=== PATIENT | male | born 1970 | race Caucasian/White ===

== ENCOUNTER 2016-08-13 21:33 | Emergency (ER) | payer SELFPAY ==
[~2016-08-13] VITALS: Ht 177.8 cm; Wt 86.5 kg
[2016-08-13 21:38] VITALS: Ht 177.8 cm; Wt 86.5 kg
== END 2016-08-14 00:10 | disposition left against medical advice (07) ==
LOC: E/R 21:33
DX: Z53.21 Procedure and treatment not carried out due to patient leaving prior to being seen by health care provider (principal)

== ENCOUNTER 2016-08-24 15:13 | Emergency (ER) | payer MEDICAID ==
[~2016-08-24] VITALS: Ht 180.3 cm; Wt 83.0 kg
[2016-08-24 15:15] VITALS: Ht 180.3 cm; Wt 83.0 kg
[2016-08-24] MEDS ORDERED: morphine 4 MG/ML VIAL IV STA (16:22)
[2016-08-24] MEDS ORDERED: ONDANSETRON 4 MG INJ IV STA (16:22)
[2016-08-24] MEDS ORDERED: FAMOTIDINE 20 MG INJ IV STA (16:22)
[2016-08-24] MEDS ORDERED: SOD CHLORIDE 0.9% 1,000 ML IV STA (16:22)
[2016-08-24 17:20] LABS: ADD SCAN DIFF NO
[2016-08-24 17:27] LABS: HEMATOCRIT 45.1 % (42.0-52.0); HEMOGLOBIN 14.5 g/dl (14.0-18.0); MEAN CORPUSCULAR HEMOGLOBIN 29.2 pg (29.0-33.0); MEAN CORPUSCULAR HGB CONC 32.2 g/dl (32.0-37.0); MEAN CORPUSCULAR VOLUME 90.7 fl (82.0-101.0); MEAN PLATELET VOLUME 9.2 fl (7.4-10.4); PLATELET COUNT 241 10^3/UL (140-415); RED BLOOD COUNT 4.97 10^6/ul (4.70-6.10); RED CELL DISTRIBUTION WIDTH 13.8 % (11.5-14.5); WHITE BLOOD COUNT 9.7 10^3/ul (4.8-10.8)
[2016-08-24 17:42] LABS: ADD UMIC YES; URINE BILIRUBIN (Dip) NEGATIVE (NEGATIVE); URINE BLOOD (Dip) NEGATIVE (NEGATIVE); URINE COLOR YELLOW (YELLOW); URINE GLUCOSE (Dip) NEGATIVE (NEGATIVE); URINE KETONES (Dip) NEGATIVE (NEGATIVE); URINE LEUKOCYTE ESTERASE (Dip) NEGATIVE (NEGATIVE); URINE NITRITE (Dip) NEGATIVE (NEGATIVE); URINE TOTAL PROTEIN (Dip) 1+ (NEGATIVE); URINE UROBILINOGEN (Dip) 0.2 E.U./dL (0.1-1.0)
[2016-08-24 17:46] LABS: ALBUMIN 3.9 g/dl (3.3-4.9); INR 1.03; POTASSIUM 3.6 mmol/L (3.5-5.1); PROTIME 13.5 Sec (12.2-14.2); PT RATIO 1.1
[2016-08-24 17:47] LABS: PARTIAL THROMBOPLASTIN TIME 34.9 Sec (25.0-35.0)
[2016-08-24 17:48] LABS: BILIRUBIN,INDIRECT 1.1 mg/dl (0-1.1); BILIRUBIN,TOTAL 1.1 mg/dl (0.2-1.3); CREATININE 1.07 mg/dl (0.61-1.24)
[2016-08-24 17:49] LABS: ALBUMIN/GLOBULIN RATIO 0.92; CALCIUM 8.7 mg/dl (8.4-10.2); TOTAL PROTEIN 8.1 g/dl (6.1-8.1)
[2016-08-24 17:50] LABS: URINE RBCS 0-2 /HPF (0)
[2016-08-24] MEDS ORDERED: IOHEXOL 300MG/ML 150 ML BTL ONE (17:58)
[2016-08-24] MEDS ORDERED: SOD CHLORIDE 0.9% 100 ML ONE (17:58)
[2016-08-24 18:08] LABS: LYMPHOCYTES # 1.2 10^3/ul (0.8-2.9); MONOCYTE # 0.6 10^3/ul (0.3-0.9); NEUTROPHIL # 6.2 10^3/ul (1.6-7.5)
[2016-08-24] MEDS ORDERED: KETOROLAC 30 MG INJ IV STA (18:34)
--- NOTE | 2016-08-24 18:36 | RADRPT ---
PROCEDURE: US Abdomen (right upper quadrant). CLINICAL INDICATION: Abdominal pain TECHNIQUE: Multiple real-time longitudinal and transverse images of the right upper quadrant of th e abdomen were acquired utilizing a curved array transducer. Images were reviewed on a high-resoluti on PACS workstation. COMPARISON: CT from the same day. FINDINGS: The liver is normal in size and echogenicity without focal mass or intrahepatic biliary dilatation. The gallbladder is normal. There is no pericholecystic fluid or gallbladder wall thickening or gal lstones. No intra or extrahepatic biliary dilatation is seen. The common bile duct measures 2.25 m m in maximal dimension. The visualized portions of the pancreas are unremarkable with obscuration o f the tail of the pancreas. No free fluid is identified. The right kidney measures 9.8 cm in length. There is normal echogenicity within the right kidney. There is no perinephric fluid collection. No hydronephrosis, mass, or calculus is seen. IMPRESSION: Unremarkable right upper quadrant ultrasound. RPTAT: .Rohan Ramey MD, Date Time Electronically viewed and signed by .Rohan Ramey MD, on 08/24/2016 18:36 .A/
--- NOTE | 2016-08-24 18:45 | RADRPT ---
PROCEDURE: CT Abdomen and Pelvis with contrast. CLINICAL INDICATION: Abdominal pain. TECHNIQUE: CT scan of the abdomen and pelvis with contrast was performed on a multi-detector high- resolution CT scanner. The patient was scanned following the uncomplicated intravenous administrati on of 100 cc of Omnipaque 300. Coronal and sagittal reformatted images were obtained from the axial source images. One or more of the following dose reduction techniques were used: Automated exposur e control, adjustment of the mA and/or kV according to patient size, use of iterative reconstructio n technique. Images were reviewed on a high-resolution PACS workstation. The total exam CTDI equals 9.28 mGy and the total exam DLP equals 603.5 mGy-cm. COMPARISON: None available. FINDINGS: CT abdomen: Minimal bilateral lower lobe dependent atelectatic changes are present. Otherwise, the lung bases are clear. The heart size is normal, without pericardial thickening or effusion. The liver is normal in size and density without focal mass or intrahepatic biliary dilatation. The spleen is normal in size and homogeneous in density. The stomach is partially collapsed, but is richard ssly unremarkable. The pancreas as visualized is normal. The gallbladder is unremarkable. The jessica iary tree is unremarkable without evidence for biliary dilatation. The adrenal glands are symmetric and normal. There is a 4 mm calculus at the inferior pole of the right kidney. Otherwise, the kid neys are unremarkable. No renal calculus or obstructive uropathy or mass lesion is seen. The aorta is of normal caliber. There is no retroperitoneal lymphadenopathy. The cele hepatis re gion is clear. The small bowel and mesentery, as visualized, are unremarkable. There is diffuse cir cumferential wall edema involving the majority of the colon with relative sparing of the distal thayer sverse colon and distal sigmoid colon. There is associated pericolonic fat stranding. There is no evidence of abscess. Mildly prominent mesenteric lymph nodes are likely reactive. CT pelvis: The small bowel loops situated within the pelvis are unremarkable. The pelvic organs are normal. T he pelvic sidewalls and inguinal regions are clear. The appendix is normal. No pelvic mass, lymphad enopathy, or free fluid is seen. The bladder is normal. There is minimal retrolisthesis of L3-L4 and L4-L5 with chronic right-sided pars defect at L5. A Sc hmorl's node is noted at the superior endplate of L4. No osteolytic or osteoblastic lesion is detec zach. IMPRESSION: 1. Circumferential wall edema throughout the majority of the colon with pericolonic fat stranding, consistent with colitis. Consider infectious or inflammatory etiologies. 2. Small nonobstructive right renal calculus. 3. Degenerative changes in the lower lumbar spine as detailed above. RPTAT: HH .Rohan Ramey MD, MD Date Time Electronically viewed and signed by .Rohan Ramey MD, on 08/24/2016 18:45 .A/
[2016-08-24] MEDS ORDERED: ONDA4TAB14 PO (18:57)
[2016-08-24] MEDS ORDERED: BISM-34 PO (18:58)
[2016-08-24] MEDS ORDERED: CIPR500T4 PO (19:00)
[2016-08-24] MEDS ORDERED: METR500T PO (19:00)
[2016-08-24] MEDS ORDERED: ACETAMINOPHEN 325 MG TAB PO ONE (19:00)
[2016-08-24 19:09] VITALS: BP 116/79; PULSE 97; RESP 18; TEMP 100
--- NOTE | 2016-08-25 00:51 | ERD ---
ER Documentation Chief Complaint Date/Time DATE: 08/25/16 TIME: 00:43 Chief Complaint fever, headache, abdominal pain and diarrhea x 2 days HPI This patient is a 46-year-old male presenting to the emergency department for midepigastric and lower abdominal pain with fevers and headaches ongoing for the past 3 days. The patient is also had diarrhea and vomiting. He states he is hungry but he cannot eat because he will throw it up. He states he may have had bad meat. Symptoms are constant and he rates it a 10 out of 10. There is no radiation. He took Pepto-Bismol and ibuprofen at home with only mild relief of symptoms. He denies other symptoms at this time. ROS All systems reviewed and are negative except as per history of present illness. Medications Home Meds Active Scripts Metronidazole* (Flagyl*) 500 Mg Tablet, 500 MG PO TID for 10 Days, #30 TAB Prov:JESÚS REY PA-C 08/24/16 Ciprofloxacin Hcl* (Ciprofloxacin Hcl*) 500 Mg Tablet, 500 MG PO BID for 10 Days , #20 TAB Prov:JESÚS REY PA-C 08/24/16 Bismuth Subsalicylate* (Bismuth Subsalicylate*) 262 Mg/15 Ml Oral.susp, 15 ML PO Q6 Y for DIARRHEA, #1 BOTTLE Prov:JESÚS REY PA-C 08/24/16 Ondansetron (Ondansetron Odt) 4 Mg Tab.rapdis, 4 MG PO Q6H Y for NAUSEA AND/OR VOMITING, #10 TAB Prov:JESÚS REY PA-C 08/24/16 Allergies Allergies: Coded Allergies: No Known Allergy (Unverified , 08/13/16) PMhx/Soc Medical and Surgical Hx: Unable to obtain Hx Alcohol Use: Yes Hx Substance Use: No Hx Tobacco Use: No Smoking Status: Never smoker FmHx Noncontributory for chief complaint Physical Exam Vitals Vital Signs Date Time Temp Pulse Resp B/P Pulse Ox O2 Delivery O2 Flow Rate FiO2 08/24/16 19:09 100.0 97 18 116/79 99 Room Air 08/24/16 18:33 100.4 08/24/16 15:15 100.3 99 18 121/77 97 Physical Exam Const: The patient is resting comfortably in no acute distress. Head: Atraumatic Eyes: Normal Conjunctiva ENT: Normal External Ears, Nose and Mouth. Neck: Full range of motion..~ No meningismus. Resp: Clear to auscultation bilaterally Cardio: Regular rate and rhythm, no murmurs Abd: The patient has some mild tenderness to palpation in the midepigastric region. There is no rebound tenderness or guarding. There is no tenderness palpation of the right lower quadrant. Skin: No petechiae or rashes Back: No midline or flank tenderness Ext: No cyanosis, or edema Neur: Awake and alert Psych: Normal Mood and Affect Result Diagram: 08/24/16 1640 08/24/16 1640 Results 24 hrs Laboratory Tests Test 08/24/16 16:40 White Blood Count 9.710^3/ul Red Blood Count 4.9710^6/ul Hemoglobin 14.5g/dl Hematocrit 45.1% Mean Corpuscular Volume 90.7fl Mean Corpuscular Hemoglobin 29.2pg Mean Corpuscular Hemoglobin Concent 32.2g/dl Red Cell Distribution Width 13.8% Platelet Count 23889^3/UL Mean Platelet Volume 9.2fl Neutrophils % 64.0% Band Neutrophils % 18.0% Lymphocytes % 12.0% Monocytes % 6.0% Eosinophils % % Neutrophils # 6.210^3/ul Lymphocytes # 1.210^3/ul Monocytes # 0.610^3/ul Eosinophils # 10^3/ul Prothrombin Time 13.5Sec Prothrombin Time Ratio 1.1 INR International Normalized Ratio 1.03 Activated Partial Thromboplast Time 34.9Sec Urine Color YELLOW Urine Clarity CLEAR Urine pH 6.0 Urine Specific [place] 1.025 Urine Ketones NEGATIVE Urine Nitrite NEGATIVE Urine Bilirubin NEGATIVE Urine Urobilinogen 0.2 E.U./dL Urine Leukocyte Esterase NEGATIVE Urine Microscopic RBC 0-2/HPF Urine Microscopic WBC NONE SEEN/HPF Urine Epithelial Cells FEW Urine Hemoglobin NEGATIVE Urine Glucose NEGATIVE% Urine Total Protein 1+ Sodium Level 135mmol/L Potassium Level 3.6mmol/L Chloride Level 93mmol/L Carbon Dioxide Level 28mmol/L Anion Gap 18 Blood Urea Nitrogen 21mg/dl Creatinine 1.07mg/dl Glucose Level 119mg/dl Calcium Level 8.7mg/dl Total Bilirubin 1.1mg/dl Direct Bilirubin 0.00mg/dl Indirect Bilirubin 1.1mg/dl Aspartate Amino Transf (AST/SGOT) 32IU/L Alanine Aminotransferase (ALT/SGPT) 38IU/L Alkaline Phosphatase 86IU/L Total Protein 8.1g/dl Albumin 3.9g/dl Globulin 4.20g/dl Albumin/Globulin Ratio 0.92 Lipase 17U/L Current Medications Medications (Trade) Dose Ordered Sig/Giuseppe Route PRN Reason Start Time Stop Time Status Last Admin Dose Admin Sodium Chloride (NS) 1,000 ml @ 1,000 mls/hr Q1H STAT IV 08/24/16 16:22 08/24/16 17:21 DC 08/24/16 16:34 Morphine Sulfate (morphine) 4 mg ONCE STAT IV 08/24/16 16:22 08/24/16 16:25 DC 08/24/16 16:34 Ondansetron HCl (Zofran Inj) 4 mg ONCE STAT IV 08/24/16 16:22 08/24/16 16:25 DC 08/24/16 16:34 Famotidine (Pepcid Iv) 20 mg ONCE STAT IV 08/24/16 16:22 08/24/16 16:25 DC 08/24/16 16:34 IV Flush 10 ml 10 ml STK-MED ONCE .ROUTE 08/24/16 17:58 08/24/16 17:59 DC 08/24/16 18:11 Sodium Chloride (NS) 100 ml @ ud STK-MED ONCE .ROUTE 08/24/16 17:58 08/24/16 17:59 DC 08/24/16 18:11 Iohexol (Omnipaque 300mg/ ml) 150 ml STK-MED ONCE .ROUTE 08/24/16 17:58 08/24/16 17:59 DC 08/24/16 18:11 Acetaminophen (Tylenol Tab) 650 mg ONCE ONCE PO 08/24/16 19:00 08/24/16 19:01 DC 08/24/16 18:46 Ketorolac Tromethamine (Toradol) 30 mg ONCE STAT IV 08/24/16 18:34 08/24/16 18:35 DC 08/24/16 18:42 PROCEDURE: CT Abdomen and Pelvis with contrast. CLINICAL INDICATION: Abdominal pain. TECHNIQUE: CT scan of the abdomen and pelvis with contrast was performed on a multi-detector high-resolution CT scanner. The patient was scanned following the uncomplicated intravenous administration of 100 cc of Omnipaque 300. Coronal and sagittal reformatted images were obtained from the axial source images. One or more of the following dose reduction techniques were used: Automated exposure control, adjustment of the mA and/or kV according to patient size, use of iterative reconstruction technique. Images were reviewed on a high -resolution PACS workstation. The total exam CTDI equals 9.28 mGy and the total exam DLP equals 603.5 mGy-cm. COMPARISON: None available. FINDINGS: CT abdomen: Minimal bilateral lower lobe dependent atelectatic changes are present. Otherwise, the lung bases are clear. The heart size is normal, without pericardial thickening or effusion. The liver is normal in size and density without focal mass or intrahepatic biliary dilatation. The spleen is normal in size and homogeneous in density. The stomach is partially collapsed, but is grossly unremarkable. The pancreas as visualized is normal. The gallbladder is unremarkable. The biliary tree is unremarkable without evidence for biliary dilatation. The adrenal glands are symmetric and normal. There is a 4 mm calculus at the inferior pole of the right kidney. Otherwise, the kidneys are unremarkable. No renal calculus or obstructive uropathy or mass lesion is seen. The aorta is of normal caliber. There is no retroperitoneal lymphadenopathy. The cele hepatis region is clear. The small bowel and mesentery, as visualized , are unremarkable. There is diffuse circumferential wall edema involving the majority of the colon with relative sparing of the distal transverse colon and distal sigmoid colon. There is associated pericolonic fat stranding. There is no evidence of abscess. Mildly prominent mesenteric lymph nodes are likely reactive. CT pelvis: The small bowel loops situated within the pelvis are unremarkable. The pelvic organs are normal. The pelvic sidewalls and inguinal regions are clear. The appendix is normal. No pelvic mass, lymphadenopathy, or free fluid is seen. The bladder is normal. There is minimal retrolisthesis of L3-L4 and L4-L5 with chronic right-sided pars defect at L5. A Schmorl's node is noted at the superior endplate of L4. No osteolytic or osteoblastic lesion is detected. IMPRESSION: 1. Circumferential wall edema throughout the majority of the colon with pericolonic fat stranding, consistent with colitis. Consider infectious or inflammatory etiologies. 2. Small nonobstructive right renal calculus. 3. Degenerative changes in the lower lumbar spine as detailed above. RPTAT: .Rohan Ramey MD, MD Date Time Electronically viewed and signed by .Rohan Ramey MD, MD on 08/24/2016 18:45 .A/ CC: JESÚS REY PA-C PROCEDURE: US Abdomen (right upper quadrant). CLINICAL INDICATION: Abdominal pain TECHNIQUE: Multiple real-time longitudinal and transverse images of the right upper quadrant of the abdomen were acquired utilizing a curved array transducer. Images were reviewed on a high-resolution PACS workstation. COMPARISON: CT from the same day. FINDINGS: The liver is normal in size and echogenicity without focal mass or intrahepatic biliary dilatation. The gallbladder is normal. There is no pericholecystic fluid or gallbladder wall thickening or gallstones. No intra or extrahepatic biliary dilatation is seen. The common bile duct measures 2.25 mm in maximal dimension. The visualized portions of the pancreas are unremarkable with obscuration of the tail of the pancreas. No free fluid is identified. The right kidney measures 9.8 cm in length. There is normal echogenicity within the right kidney. There is no perinephric fluid collection. No hydronephrosis, mass, or calculus is seen. IMPRESSION: Unremarkable right upper quadrant ultrasound. RPTAT: .Rohan Ramey MD, MD Date Time Electronically viewed and signed by .Rohan Ramey MD, MD on 08/24/2016 18:36 .A/ CC: JESÚS REY PA-C Procedures/[facility] EMERGENCY DEPARTMENT COURSE / MEDICAL DECISION MAKING: This is a 46-year-old male who comes to the emergency room secondary to complaints of nausea, vomiting, diarrhea, and abdominal pain. The patient was given IV morphine, IV Toradol, IV Zofran, IV fluids in the department. On re-evaluation, the patient was feeling improved. Lab results reviewed and showed no significant acute abnormalities. Urinalysis showed 1+ proteinuria which is most likely consistent with acute dehydration. Radiology: Ultrasound of the right upper quadrant was unremarkable. Abdominal CT showed 1. Circumferential wall edema throughout the majority of the colon with pericolonic fat stranding, consistent with colitis. Consider infectious or inflammatory etiologies. 2. Small nonobstructive right renal calculus. 3. Degenerative changes in the lower lumbar spine as detailed above. The primary diagnosis is nausea, vomiting, and diarrhea most likely due to viral gastroenteritis. Secondary diagnosis is abdominal pain. I have low suspicion for appendicitis, cholecystitis, other acute abdomen, septicemia, or other emergent conditions at this time. Discharge: I have discussed the lab results and diagnostic findings with the patient and answered any questions or concerns. The patient was discharged with a prescription for Flagyl, ciprofloxacin, bismuth subsalicylate, and Zofran. The patient was advised to followup with their PMD in 1-2 days and to return to the Emergency Department if there are any new or worsening symptoms. The patient understood and agreed with the diagnosis, treatment and plan. The patient is stable for discharge at this time. Departure Diagnosis: Primary Impression: Nausea vomiting and diarrhea Additional Impression: Abdominal pain Condition: Fair Patient Instructions: Abdominal Pain, Nausea and Vomiting-Adult, Diarrhea, Viral (Child) (Adult) Referrals[facility] Usted se dunlap hecho un examen mdico de control que le indica que no est en mikal condicin que requiera tratamiento urgente en el Departamento de Emergencia. Un estudio ms profundo y el tratamiento de noriega condicin pueden esperar sin ningn riesgo hasta que usted sea atendida/o en el consultorio de noriega mdico o mikal cl jany. Es responsabilidad suya arreglar mikal danie para el seguimiento del aric. MANEJO DE CONDICIONES NO URGENTES EN EL FUTURO 1) Si usted tiene un mdico de atencin primaria: Usted debera llamar a noriega mdico de atencin primaria antes de venir al departamento de emergencia. Despus de las horas de consultorio, noriega doctor o noriega asociado/a est disponible por telfono. El mdico o enfermero de khloe en el servicio telefnico puede asesorarle por pablo medio para atender el problema, o aric contrario se puede programar mikal danie. 2) Si usted no tiene un mdico de atencin primaria: Llame al mdico o clnica de referencia que aparece abajo baljeet las horas de consultorio para hacer mikal danie para que le vean. CLINICAS: [facility] [phone] [facility] [phone] [address] [facility] [phone] [facility] [phone] [facility] [phone] [address] [facility] [phone] [address] Additional Instructions: Please return in 24-48 hours if you are continuing to have abdominal pain. Follow up with your PCP within the next 1-3 days for a repeat evaluation and a possible referral to a specialist, if required. Return the the emergency department immediately if symptoms worsen or change. If you have any questions regarding medications, ask your pharmacist or us before you leave. If any adverse reactions, occur while taking your medications, discontinue the treatment and return to the emergency department immediately. If any new or worsening symptoms, uncontrolled fevers, or other unexplained symptoms occur, return to the emergency department immediately. Take your medications as directed, and complete the entire course of treatment. JESÚS REY PA-C August 25, 2016 00:51
== END 2016-08-24 19:09 | disposition home or self-care (01) ==
LOC: FTE 15:13
DX: R11.2 Nausea with vomiting, unspecified (principal); R19.7 Diarrhea, unspecified; R10.13 Epigastric pain
CPT/HCPCS: 74177; 76705; 80053; 81001; 83690; 85025; 85610; 85730; 87086; 96374; 96375; J1885; J2270; J2405; J7030; Q9967; Z7502; Z7610; 81003

== ENCOUNTER 2016-10-23 20:39 | Emergency (ER) | payer MEDICAID ==
[~2016-10-23] VITALS: Ht 177.8 cm; Wt 78.5 kg
[~2016-10-23 20:39] MED LIST: BISM-34 PO; CIPR500T4 PO; METR500T PO; ONDA4TAB14 PO
[2016-10-23 20:48] VITALS: Ht 177.8 cm; Wt 78.5 kg
[2016-10-23] MEDS ORDERED: ONDANSETRON 4 MG INJ IV STA (21:45)
[2016-10-23] MEDS ORDERED: HYDROmorphONE 1 MG/ML SYG IV STA (21:45)
[2016-10-23] MEDS ORDERED: IBUP400T22 PO (21:59)
[2016-10-23 22:40] LABS: ADD SCAN DIFF NO
[2016-10-23 22:46] LABS: BASOPHILS % 0.3 % (0.0-2.0); EOSINOPHILS # 0.1 10^3/ul (0.0-0.5); EOSINOPHILS % 1.4 % (0.0-7.0); HEMATOCRIT 46.4 % (42.0-52.0); LYMPHOCYTES # 1.5 10^3/ul (0.8-2.9); LYMPHOCYTES % 23.4 % (15.0-51.0); MEAN CORPUSCULAR HEMOGLOBIN 28.8 pg (29.0-33.0); MEAN CORPUSCULAR HGB CONC 32.3 g/dl (32.0-37.0); MEAN CORPUSCULAR VOLUME 89.1 fl (82.0-101.0); MEAN PLATELET VOLUME 9.3 fl (7.4-10.4); MONOCYTE # 0.4 10^3/ul (0.3-0.9); MONOCYTES % 6.4 % (0.0-11.0); NEUTROPHIL # 4.4 10^3/ul (1.6-7.5); NEUTROPHILS % 68.2 % (39.0-77.0); PLATELET COUNT 263 10^3/UL (140-415); RED BLOOD COUNT 5.21 10^6/ul (4.70-6.10); RED CELL DISTRIBUTION WIDTH 13.7 % (11.5-14.5); WHITE BLOOD COUNT 6.5 10^3/ul (4.8-10.8)
[2016-10-23 22:48] LABS: ALBUMIN 4.5 g/dl (3.3-4.9); ALBUMIN/GLOBULIN RATIO 0.95; BILIRUBIN,INDIRECT 1.1 mg/dl (0-1.1); BILIRUBIN,TOTAL 1.1 mg/dl (0.2-1.3); CALCIUM 9.6 mg/dl (8.4-10.2); CREATININE 0.76 mg/dl (0.61-1.24); POTASSIUM 4.5 mmol/L (3.5-5.1); TOTAL PROTEIN 9.2 g/dl (6.1-8.1)
--- NOTE | 2016-10-23 22:58 | RADRPT ---
PROCEDURE: XR Chest. CLINICAL INDICATION: Chest pain. TECHNIQUE: Single frontal chest x-ray. COMPARISON: None available. FINDINGS: The cardiomediastinal silhouette is unremarkable. No pneumothorax, pleural effusion or consolidation is seen. No acute osseous abnormality is noted. IMPRESSION: 1. No acute cardiopulmonary abnormality. RPTAT: HFN .Daniel Robles MD, MD Date Time Electronically viewed and signed by .Daniel Robles MD, on 10/23/2016 22:58 .N/
[2016-10-23 23:00] LABS: TROPONIN-I 0.017 ng/ml (0.00-0.12)
[2016-10-23] MEDS ORDERED: HYDR-906 PO (23:18)
[2016-10-23] MEDS ORDERED: IBUP800T25 PO (23:18)
--- NOTE | 2016-10-23 23:26 | ERD ---
ER Documentation Chief Complaint Date/Time DATE: 10/23/16 TIME: 23:22 Chief Complaint Left shoulder pain HPI This is a 46-year-old male who tells me that he has been drinking lots of alcohol today. He states that for the past 3 days he has had pain in the left anterior shoulder is described as sharp and worse with movement better with rest. He has no chest pain or shortness of breath no diaphoresis no pain in the jaw back or abdomen. He does not recall any trauma or lifting pushing pulling injury. Patient says he is having lots of stress because she is having some family issues and is where he drank all day to try to escape the stress ROS All systems reviewed and are negative except as per history of present illness. Medications Home Meds Active Scripts Hydrocodone/Acetaminophen ([place] 5-325 Tablet) 1 Each Tablet, 1 TAB PO Q6H Y for PAIN, #7 TAB Prov:TOSHIA MARCUS DO 10/23/16 Ibuprofen* (Motrin*) 800 Mg Tab, 800 MG PO Q6H Y for PAIN AND OR ELEVATED TEMP, #30 TAB Prov:TOSHIA MARCUS DO 10/23/16 Reported Medications Ibuprofen* (Ibuprofen*) 400 Mg Tablet, 400 MG PO Q6H Y for PAIN, TAB 10/23/16 Discontinued Scripts Metronidazole* (Flagyl*) 500 Mg Tablet, 500 MG PO TID for 10 Days, #30 TAB Prov:EJSÚS REY PA-C 08/24/16 Ciprofloxacin Hcl* (Ciprofloxacin Hcl*) 500 Mg Tablet, 500 MG PO BID for 10 Days , #20 TAB Prov:JESÚS REY PA-C 08/24/16 Bismuth Subsalicylate* (Bismuth Subsalicylate*) 262 Mg/15 Ml Oral.susp, 15 ML PO Q6 Y for DIARRHEA, #1 BOTTLE Prov:JESÚS REY PA-C 08/24/16 Ondansetron (Ondansetron Odt) 4 Mg Tab.rapdis, 4 MG PO Q6H Y for NAUSEA AND/OR VOMITING, #10 TAB Prov:JESÚS REY PA-C 08/24/16 Allergies Allergies: Coded Allergies: No Known Allergy (Unverified , 10/23/16) PMhx/Soc Medical and Surgical Hx: pt denies Medical Hx, pt denies Surgical Hx History of Surgery: No Anesthesia Reaction: No Hx Neurological Disorder: No Hx Respiratory Disorders: No Hx Cardiac Disorders: No Hx Psychiatric Problems: No Hx Miscellaneous Medical Probl: No Hx Alcohol Use: Yes Hx Substance Use: No Hx Tobacco Use: No Smoking Status: Never smoker FmHx Family History: No coronary disease Physical Exam Vitals Vital Signs Date Time Temp Pulse Resp B/P Pulse Ox O2 Delivery O2 Flow Rate FiO2 10/23/16 22:23 98.9 95 20 129/100 100 Room Air 10/23/16 20:48 98.2 102 20 152/97 99 Physical Exam Const: Well-developed, well-nourished Head: Atraumatic, normocephalic Eyes: Normal Conjunctiva, PERRLA, EOMI, normal sclera, no nystagmus ENT: Normal External Ears, Nose and Mouth, moist mucus membranes. Neck: Full range of motion. No meningismus, no lymphadenopathy. Resp: Clear to auscultation bilaterally, no wheezing, rhonchi, rales Cardio: Regular rate and rhythm, no murmurs, S1 S2 present Abd: Soft, non tender x 4, non distended. Normal bowel sounds, no guarding or rebound, no pulsitile abdominal masses or bruits Skin: No petechiae or rashes, no ecchymosis , no maculopapular rash Back: No midline or flank tenderness Ext: No cyanosis, or edema, FROM x 3, there is decreased range of motion of the left shoulder pain. The patient has tenderness to the anterior deltoid muscle to palpation is quite severe. There is no swelling or erythema distal strength is 5 out of 5., normal inspection, neurovascularly intact x 4 Neur: Awake and alert, STR 5/5 x 4, sensation intact x 4, no focal findings, cerebellum intact Psych: Normal Mood and Affect Result Diagram: 10/23/16223810/23/162238 Results 24 hrs Laboratory Tests Test 10/23/16 22:39 White Blood Count 6.510^3/ul Red Blood Count 5.2110^6/ul Hemoglobin 15.0g/dl Hematocrit 46.4% Mean Corpuscular Volume 89.1fl Mean Corpuscular Hemoglobin 28.8pg Mean Corpuscular Hemoglobin Concent 32.3g/dl Red Cell Distribution Width 13.7% Platelet Count 21747^3/UL Mean Platelet Volume 9.3fl Neutrophils % 68.2% Lymphocytes % 23.4% Monocytes % 6.4% Eosinophils % 1.4% Basophils % 0.3% Nucleated Red Blood Cells % 0.0/100WBC Neutrophils # 4.410^3/ul Lymphocytes # 1.510^3/ul Monocytes # 0.410^3/ul Eosinophils # 0.110^3/ul Basophils # 0.010^3/ul Nucleated Red Blood Cells # 0.010^3/ul Sodium Level 143mmol/L Potassium Level 4.5mmol/L Chloride Level 97mmol/L Carbon Dioxide Level 28mmol/L Anion Gap 23 Blood Urea Nitrogen 11mg/dl Creatinine 0.76mg/dl Glucose Level 87mg/dl Calcium Level 9.6mg/dl Total Bilirubin 1.1mg/dl Direct Bilirubin 0.00mg/dl Indirect Bilirubin 1.1mg/dl Aspartate Amino Transf (AST/SGOT) 73IU/L Alanine Aminotransferase (ALT/SGPT) 47IU/L Alkaline Phosphatase 82IU/L Troponin I 0.017ng/ml Total Protein 9.2g/dl Albumin 4.5g/dl Globulin 4.70g/dl Albumin/Globulin Ratio 0.95 Current Medications Medications (Trade) Dose Ordered Sig/Giuseppe Route PRN Reason Start Time Stop Time Status Last Admin Dose Admin Hydromorphone HCl (Dilaudid) 0.5 mg ONCE STAT IV 10/23/16 21:45 10/23/16 21:49 DC 10/23/16 23:06 Ondansetron HCl (Zofran Inj) 4 mg ONCE STAT IV 10/23/16 21:45 10/23/16 21:49 DC 10/23/16 23:07 Procedures/MDM PROCEDURE: XR Chest. CLINICAL INDICATION: Chest pain. TECHNIQUE: Single frontal chest x-ray. COMPARISON: None available. FINDINGS: The cardiomediastinal silhouette is unremarkable. No pneumothorax, pleural effusion or consolidation is seen. No acute osseous abnormality is noted. IMPRESSION: 1. No acute cardiopulmonary abnormality. RPTAT: HFN .Farbod Nasseri, MD, Date Time Electronically viewed and signed by .Daniel Robles MD, MD on 10/23/2016 22: 58 .N/ CC: TOSHIA MARCUS DO EKG: Rate/Rhythm: Sinus tachycardia heart rate 103 QRS, ST, QT: NORMAL [place], QRS, QT] Impression: Sinus tachycardia Patient's chest arm pain is clearly due to musculoskeletal in origin His pain is reproducible to palpation and with range of motion of the left shoulder. Unremarkable troponin is negative. Departure Diagnosis: Primary Impression: Muscle strain Additional Impression: Shoulder pain, left Chronicity: acute Qualified Code: M25.512 - Acute pain of left shoulder Condition: Stable Patient Instructions: Muscle Strain, Extremity, Shoulder Pain (Uncertain Cause) TOSHIA MARCUS DO Oct 23, 2016 23:26
[2016-10-24 00:48] VITALS: BP 132/93; PULSE 95; RESP 16; TEMP 98.9
== END 2016-10-24 00:52 | disposition home or self-care (01) ==
LOC: E/R 20:39
DX: S46.912A Strain of unspecified muscle, fascia and tendon at shoulder and upper arm level, left arm, initial encounter (principal); R07.9 Chest pain, unspecified; X50.9XXA Other and unspecified overexertion or strenuous movements or postures, initial encounter; Y92.9 Unspecified place or not applicable
CPT/HCPCS: 36415; 71010; 80053; 84484; 85025; 93005; 96374; 96375; J1170; J2405; Z7502